=== PATIENT | female | born 1970 | race Two or more races ===

== ENCOUNTER 2022-05-16 15:29 | Outpatient (CLI) | payer OTHER, MEDICAID ==
[2022-05-16 16:36] VITALS: BP 110/76
--- NOTE | 2022-05-16 16:36 | SLEEP CARE CONSULTATION ---
Information from patient questionnaire entered by Neeraj Jo. I have reviewed and concur with the information entered by Neeraj Jo. This document represents the service I personally performed and the decisions made by me, Kavitha Severino ARNP. History of Present Illness Service Date and Time: 05/16/2022 1529 Reason for Visit: New patient Chief Complaint: reports: Snoring, Excessive daytime sleepiness, Other (PAST EXCESSIVE DAYTIME SLEEPINESS) Date of Onset: YEARS Usual bedtime: VARIES; with depression; now 9-10 pm Time it takes to fall asleep: VARIES; 15 minutes to 1-2 hours Snores at night: Yes Observed to quit breathing while asleep: No Sleeps alone due to snoring: No (1-2) Number of times waking at night: 1-2 Reasons for waking at night: reports: Bathroom, Other (wakes up coughing, possibly from allergies). denies: Choking, Snoring, Gasping for air Toss, Turn, or Twitch while sleeping: No Recalls having dreams: Yes (sometimes) Usually gets out of bed at: VARIES; 0530 now Feels refreshed in the morning: No (never feels fully refreshed) Morning headache: Yes (1 x a week; [facility] AT [facility]; "kind of a neck issue") Sleepy or fatigued during the day: No Ever fallen asleep while driving: No Takes day naps: Yes (1-2 times a week for about 1-2 hours) Dreams during day naps: No Prior sleep studies: No Additional HPI information: I had the pleasure of seeing AARON FREEDMAN today regarding the possibility of her having a sleep disorder. Her current complaints are excessive daytime sleepiness and snoring. She was referred about a year ago by her psychiatrist because she was having sleeping problems with her depression. She was not able to fall asleep quickly at night and awakening frequently at night. She feel that things have improve and that she has changed in the last 2 months. She feels her depression is much improved due to life changes, including a new boyfriend. She can fall asleep in about 15 minutes and only wakes up 1-2 times at night for bathroom or other. She states her daughter has told her that she snores and will cough in her sleep. She denies choking or gasping waking her up. She has not been told that she has any pauses in breathing when sleeping. [facility] that [facility] at [facility] and then they sent her a CPAP to use. This was a year ago. She tried the CPAP about 4 times for about 30 minutes at a time. She was very depressed at this time and just could not tolerate the pressure. It did not feel right to have pressure into her nose/mouth. She was thus sent here for further evaluation and treatment as necessary. - Parasomnia Symptoms Ever been unable to move upon waking from sleep: No Walks in sleep: No Talks in sleep: No Ever acted out dreams in sleep: Yes (when going thru divorce/ trauma, having bad dreams) Ever felt weak in the knees when startled or emotional: No Bothered by creepy, crawly, restless sensations in legs: No Problems with memory or concentration: Yes (both, hard time retaining memory) Subjective Initial Delta Sleepiness Scale score: 13 (05/16/22) Past Medical History Past Medical History: reports: Hypertension, Depression, Attention deficit, Other (Cholecystectomy 2011) Social History The patient's occupation is a CAREGIVER. Patient is Single and lives in . Have you smoked in the past 12 months: No Alcohol use: Yes Alcohol amount and frequency: occasionally, not regular Caffeine use: Yes Caffeine amount and frequency: occasionally, not regular Family History Family history of sleep disordered breathing: No (adopted, don't know hx) Allergies and Home Medications Known drug allergies: No Drug allergies reviewed: Yes (NKDA) Home medication list reviewed: Yes Allergy and home medication list: Medications: Atenolol 25 mg daily Ziprasidone 20 mg 2 x a day K[place]haw 450 mg daily Escitalopram 20 mg daily Amlodipine 5 mg daily Review of Systems Weight gain over past 5 years: 20 Weight loss over past 5 years: 5 Cardiovascular: reports: high blood pressure Gastrointestinal: reports: diarrhea, other (NO GALL BLADDER) Neurological: reports: headaches Psychiatric: reports: Attention Deficit Hyperactivity, depression Ear/Nose/Throat: reports: nasal congestion, sinus problems, wisdom teeth removed. denies: tonsillectomy Endocrine: reports: sluggishness Musculoskeletal: reports: neck pain Physical Exam Vital signs obtained and entered by: ROSARIO, RADIOGRAPHER TECHNOLOGIST Blood Pressure: 110/76 (LEFT ARM ) Cuff size: regular Heart Rate: 64 O2 Saturation: 97 Height: 5 ft 7 in Weight: 227 lb Body Mass Index: 35.5 BMI Classification: Obese Neck circumference: 16.5 (INCHES) Nostrils: patent to airflow Mouth and throat: narrow oropharynx Soft palate: normal Hard palate: normal Uvula: normal Uvula visualization: 25% Mallampati Class III Tongue: normal in size Tonsils: 2+ Neck: normal w/o lymphadenopathy or thyromegaly Heart: regular rate and rhythm Lungs: clear bilaterally Impression and Plan 1. Suspected Obstructive Sleep Apnea-Hypopnea Syndrome, as previously diagnosed and as still suggested by a history of loud and irregular snoring, morning headache, unrefreshed sleep and cognitive impairment. Narrow oropharynx and obesity are common predisposing factors for obstructive sleep apnea-hypopnea syndrome. I recommend proceeding to polysomnography to confirm the diagnosis and to assess severity. I informed the patient of what the sleep studies involve and after some discussion, obtained agreement to proceed. The pathophysiology of obstructive sleep apnea-hypopnea syndrome was discussed with the patient and health risks of cardiovascular and cerebrovascular disease if not treated. Risks of drowsy driving discussed in detail and patient advised to avoid long distance driving and to pan shover at the first sign of drowsiness. Patient agreed to plan. * Schedule polysomnography * Avoid long distance driving or driving when feeling sleepy. * Avoid alcohol, sedative and muscle relaxant around bedtime. * Attempt to lose weight. * Review instructions provided by trained office staff on how to prepare for the sleep study. * Return for follow-up after sleep study completed. Counseling Topics: Weight loss health impact Visit Type: In Office Time Spent with Patient (minutes): 32 Provider Statement: I spent 100% of the Face to Face Visit with the patient with greater than 50% spent counseling the patient and coordination of care.
== END 2022-05-16 15:30 | disposition home or self-care (01) ==
LOC: SC 15:29
PROVIDERS: ATTEND Nurse Practitioner Family
DX: G47.33 Obstructive sleep apnea (adult) (pediatric) (principal); E66.9 Obesity, unspecified; Z68.35 Body mass index [BMI] 35.0-35.9, adult
CPT/HCPCS: 99203; 99212